=== PATIENT | male | born 1965 | race Hispanic/Latino ===

== ENCOUNTER 2020-10-04 06:50 | Observation (INO) | payer MEDICARE, SELFPAY ==
[2020-10-04] MEDS ORDERED: Tranexamic Acid 1,000 MG/10 ML VIAL ONE (07:28)
[2020-10-04] MEDS ORDERED: Ondansetron PF 4 MG/2 ML Vial IVP PRN (08:45)
[2020-10-04] MEDS ORDERED: Acetaminophen 325 MG TAB PO PRN (08:45)
[2020-10-04] MEDS ORDERED: diphenhydrAMINE 50 MG/ML VIAL IVP PRN (08:49)
[2020-10-04] MEDS ORDERED: hydrALAZINE 20 MG/ML VIAL SLOW IVP PRN (08:53)
[2020-10-04] MEDS ORDERED: hydrALAZINE 25 MG TAB ONE (09:57)
[2020-10-04] MEDS: Famotidine/PF 20 mg/2ml Vial SLOW IVP SCH ×2 (12:35→21:03)
[2020-10-04] MEDS: methylPREDNISolone Sod Succ/PF 125 MG/2 ML VIAL IVP SCH ×2 (12:35→17:17)
[2020-10-04] MEDS: Atenolol 25 MG TAB PO SCH (12:35)
[2020-10-04 12:58] VITALS: BMI 46.4
[2020-10-04] MEDS ORDERED: Atorvastatin Calcium 10 MG TAB PO SCH (21:00)
[2020-10-05] MEDS: methylPREDNISolone Sod Succ/PF 125 MG/2 ML VIAL IVP SCH ×3 (00:12→12:03)
[2020-10-05 05:12] LABS: #Monocytes 0.6 10x3/uL (0.0-1.1); #Neutrophils 11.5 10x3/uL (1.5-8.4); %Basophils 0.1 % (0.0-2.0); %Lymphocytes 8.2 % (18.0-47.0); %Monocytes 4.5 % (0.0-10.0); %Neutrophils 86.7 % (40.0-75.0); Hemoglobin 14.5 g/dL (13.5-17.5); Mean Corpuscular HGB CONC 32.2 g/dL (32.0-36.0); Mean Corpuscular Volume 90.2 fl (81.2-95.1); Mean Platelet Volume 9.8 fl (7.4-10.4); Platelet Count 181 10x3/uL (150-450); RBC Distribution Width 14.3 % (11.5-14.5); White Blood Cell (WBC) Count 13.2 10x3/uL (3.5-10.5)
[2020-10-05 05:27] LABS: Anion Gap 15 mmol/L (10-20); BUN (Urea Nitrogen) 10 mg/dL (8.4-25.7); Calc. Creatinine Clearance 228 mL/min (70-130); Calcium 9.3 mg/dL (7.8-10.44); Carbon Dioxide 25 mmol/L (22-29); Chloride 101 mmol/L (98-107); Glucose 188 mg/dL (70-105); Potassium 3.8 mmol/L (3.5-5.1); Sodium 137 mmol/L (136-145)
[2020-10-05] MEDS: Atenolol 25 MG TAB PO SCH (08:24)
[2020-10-05] MEDS: Famotidine/PF 20 mg/2ml Vial SLOW IVP SCH (08:26)
[2020-10-05 12:12] VITALS: BP 121/72; TEMP 97.2
[2020-10-06] MEDS ORDERED: Atorvastatin Calcium 10 MG TAB PO SCH (09:00)
[2020-10-06] MEDS ORDERED: Triamterene/Hydrochlorothiazide TAB PO SCH (09:00)
[2020-10-06] MEDS ORDERED: Atenolol 50 MG TAB PO SCH (09:00)
== END 2020-10-05 17:28 | disposition home or self-care (01) ==
LOC: CSHERS 06:50 → CSHTELE 08:46 → INTOOBSV 08:46
PROVIDERS: ADMIT Internal Medicine; ATTEND Physician Assistant
DX: T78.3XXA Angioneurotic edema, initial encounter (principal); T46.4X5A Adverse effect of angiotensin-converting-enzyme inhibitors, initial encounter; Z87.891 Personal history of nicotine dependence; E66.01 Morbid (severe) obesity due to excess calories; G47.33 Obstructive sleep apnea (adult) (pediatric); J44.9 Chronic obstructive pulmonary disease, unspecified; I10 Essential (primary) hypertension; E78.5 Hyperlipidemia, unspecified; Z79.899 Other long term (current) drug therapy
CPT/HCPCS: 80048; 85025; 86160; 94660; 94760 ×2; 96374; 96376; 99285; G0378 ×3; 36415; J0360; J2930; S0028